=== PATIENT | male | born 1980 | race Caucasian/White ===

== ENCOUNTER 2018-05-31 10:53 | Inpatient (IN) | payer BC ==
[2018-05-31 12:21] VITALS: BMI 20.9
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
[2018-05-31] MEDS ORDERED: MAGNESIUM CITRATE 300 ML BOTTLE PO PRN (13:34)
[2018-05-31] MEDS ORDERED: ACETAMINOPHEN 325 MG TABLET (FP) PO PRN (13:34)
[2018-05-31] MEDS ORDERED: IBUPROFEN 400 MG TABLET (FP) PO PRN (13:34)
[2018-05-31] MEDS ORDERED: MENTHOL/PHENOL 1 EACH UD MM PRN (13:34)
[2018-05-31] MEDS ORDERED: MAGNESIUM HYDROX 2400MG/30ML ORAL SUSPENSION 30 ML CUP PO PRN (13:34)
[2018-05-31] MEDS ORDERED: MAG HYDROX/AL HYDROX/SIMETH 30 ML UNIT-DOSE CUP PO PRN (13:34)
[2018-05-31] MEDS ORDERED: chlordiazePOXIDE HCL 25 MG CAPSULE PO PRN (13:34)
[2018-05-31] MEDS ORDERED: P-EPHED 60MG/TRIPROLIDI 2.5MG TABLET PO PRN (13:34)
[2018-05-31] MEDS ORDERED: guaiFENesin/D-METHORPHAN HB 10 ML UNIT-DOSE CUPS PO PRN (13:34)
[2018-05-31] MEDS ORDERED: LOPERAMIDE HCL 2 MG CAPSULE PO PRN (13:34)
[2018-05-31] MEDS: NICOTINE 21 MG/24 HOURS TOPICAL PATCH TD SCH (15:20)
[2018-05-31] MEDS: chlordiazePOXIDE HCL 25 MG CAPSULE PO SCH ×2 (17:09→22:28)
[2018-05-31] MEDS: THIAMINE HCL 100 MG TABLET (FP) PO SCH (22:28)
[2018-05-31] MEDS: BUPRENORPHINE/NALOXONE 8 MG/2 MG FILM PACKET SL SCH (22:28)
[2018-05-31] MEDS: MELATONIN 5 MG TABLETS PO PRN (22:32)
[2018-06-01] MEDS: chlordiazePOXIDE HCL 25 MG CAPSULE PO SCH ×4 (05:17→22:02)
[2018-06-01 10:05] LABS: HEMATOCRIT 34.3 % (35.4-49); MCH 33.3 pg (25.7-33.7); MEAN CELL VOLUME 95.2 fl (80-96); MEAN PLT VOLUME 8.7 fl (7.5-11.1); PLATELET COUNT 309 K/MM3 (134-434); RDW 17.6 % (11.9-15.9); WHITE BLOOD COUNT 5.4 K/mm3 (4.0-10.0)
[2018-06-01] MEDS: PRENATAL VITAMINS W/ FOLIC ACID TABLET (FP) PO SCH (10:24)
[2018-06-01] MEDS: BUPRENORPHINE/NALOXONE 8 MG/2 MG FILM PACKET SL SCH ×2 (10:24→22:03)
[2018-06-01] MEDS: NICOTINE 21 MG/24 HOURS TOPICAL PATCH TD SCH (10:26)
[2018-06-01 11:21] LABS: ALBUMIN 2.8 g/dl (3.4-5.0); ALK PHOS 90 U/L (45-117); ANION GAP 7 MMOL/L (8-16); BILIRUBIN,TOTAL 0.7 mg/dL (0.2-1); BLOOD UREA NITROGEN 5 mg/dL (7-18); CALCIUM 8.1 mg/dL (8.5-10.1); CHLORIDE 101 mmol/L (98-107); CO2 30 mmol/L (21-32); CREATININE 0.5 mg/dL (0.55-1.3); GLUCOSE,RANDOM 88 mg/dL (74-106); POTASSIUM 3.4 mmol/L (3.5-5.1); SGOT/AST 37 U/L (15-37); SGPT/ALT 27 U/L (13-61); SODIUM 137 mmol/L (136-145)
[2018-06-01] MEDS: hydrOXYzine PAMOATE 50 MG CAPSULE (FP) PO PRN (13:19)
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
[2018-06-01] MEDS ORDERED: POTASSIUM CHLORIDE TABS 20 MEQ TABLET.ER (FP) PO ONE (15:15)
--- NOTE | 2018-06-01 15:25 | CONSULT ---
[facility] Psychiatric Consult - Data Date of interview: 06/01/17 Admission source: [facility] Identifying data: Patient is a 38 year old single male, without children, unemployed, domiciled, and suppported by public assistance. This is patient's first admission to detox at [facility]. Patient admitted to for alcohol and opiate dependence. Substance Abuse History: Smoking Cessation. Smoking history: Current every day smoker. Have you smoked in the past 12 months: Yes. Aproximately how many cigarettes per day: 10. Cigars Per Day: 0. Hx Chewing Tobacco Use: No. Initiated information on smoking cessation: Yes. 'Breaking Loose' booklet given : 05/31/18. - Substance & Tx. History. Hx Alcohol Use: Yes. Hx Substance Use : Yes. Substance Use Type: Alcohol, Heroin. Hx Substance Use Treatment: Yes ( [facility] 05/17). - Substances Abused. Alcohol. Route: Oral. Frequency: Daily. Amount used: 2 litres of vodka. Age of first use: 8. Date of Last Use : 05/30/18. Heroin. Route: Inhalation. Frequency: 1-2 times per week. Amount used: 5 bags. Age of first use: 20. Date of Last Use: 05/28/18 Medical History: Asthma Psychiatric History: Patient denies h/o psychiatric hospitalization and suicide attempt. Most recent outpatient psychiatric care was provided 3-4 years ago. Patient receives prescriptions of seroquel 200mg from his Primary care physican. Patient unable to provide a clear psychiatric history. He reports losing his medications last week and is requesting to resume seroquel while in detox. At present he reports stable mood. Physical/Sexual Abuse/Trauma History: denies. Mental Status Exam - Mental Status Exam Alert and Oriented to: Time, Place, Person Cognitive Function: Good Patient Appearance: Well Groomed Mood: Euthymic Affect: Appropriate Patient Behavior: Appropriate, Cooperative Speech Pattern: Clear, Appropriate Voice Loudness: Normal Thought Process: Intact, Goal Oriented Thought Disorder: Not Present Hallucinations: Denies Suicidal Ideation: Denies Homicidal Ideation: Denies Insight/Judgement: Poor Sleep: Poorly Appetite: Fair Muscle strength/Tone: Normal Gait/Station: Normal Psychiatric Findings - Problem List ([place] 1, 2,3) (1) Alcohol dependence with uncomplicated withdrawal Current Visit: Yes Status: Acute (2) Encounter for monitoring Suboxone maintenance therapy Current Visit: Yes Status: Chronic (3) Substance-induced sleep disorder Current Visit: Yes Status: Acute (4) Opioid dependence Current Visit: Yes Status: Chronic - Initial Treatment Plan Initial Treatment Plan: Psychoeducation provided. Detoxification in progress. Will order Seroquel 50mg qhs. Benefits and side effects discussed. Verbal consent given.
[2018-06-01] MEDS: POTASSIUM CHLORIDE TABS 20 MEQ TABLET.ER (FP) PO SCH (17:19)
[2018-06-01] MEDS: THIAMINE HCL 100 MG TABLET (FP) PO SCH (22:02)
[2018-06-01] MEDS: QUEtiapine FUMARATE 50 MG TABLET PO SCH (22:02)
[2018-06-01] MEDS: BACITRACIN 0.9 GM PACKET TP SCH (22:03)
[2018-06-02] MEDS: chlordiazePOXIDE HCL 25 MG CAPSULE PO SCH ×2 (06:00→11:15)
[2018-06-02] MEDS: PRENATAL VITAMINS W/ FOLIC ACID TABLET (FP) PO SCH (11:14)
[2018-06-02] MEDS: BUPRENORPHINE/NALOXONE 8 MG/2 MG FILM PACKET SL SCH ×2 (11:14→22:35)
[2018-06-02] MEDS: LIDOCAINE 5% TOPICAL PATCH TP SCH (11:15)
[2018-06-02] MEDS: BACITRACIN 0.9 GM PACKET TP SCH ×2 (11:16→22:35)
[2018-06-02] MEDS: NICOTINE 21 MG/24 HOURS TOPICAL PATCH TD SCH (11:16)
[2018-06-02] MEDS: POTASSIUM CHLORIDE TABS 20 MEQ TABLET.ER (FP) PO SCH ×2 (11:16→17:23)
--- NOTE | 2018-06-02 16:29 | PN ---
S CIWA - CIWA Score Nausea/Vomitin-No Nausea/No Vomiting Muscle Tremors: 3 Anxiety: 2 Agitation: 0-Normal Activity Paroxysmal Sweats: 3 Orientation: 0-Oriented Tacttile Disturbances: 2-Mild Itch/Numbness/Burn Auditory Disturbances: 0-None Visual Disturbances: 2-Mild Sensitivity Headache: 0-None Present CIWA-Ar Total Score: 12 BHS Progress Note (SOAP) Subjective: Tremors, Sweating, Interrupted Sleep, Constipation. Objective: PATIENT A & O X 3, OBSERVED AMBULATING ON UNIT. IN NO ACUTE DISTRESS. WOUND ON RIGHT SIDE OF HEAD ABOVE RIGHT EAR HEALING WELL. NO DISCHARGE OR SIGNS OF INFECTION NOTED AT SITE. 06/02/18 16:27 Vital Signs Temperature 97.9 F 06/02/18 14:12 Pulse Rate 69 06/02/18 14:12 Respiratory Rate 16 06/02/18 14:12 Blood Pressure 116/75 06/02/18 14:12 O2 Sat by Pulse Oximetry (%) Laboratory Tests 06/01/18 06/01/18 06/01/18 08:00 08:00 08:00 WBC 5.4 RBC 3.60 L Hgb 12.0 Hct 34.3 L MCV 95.2 MCH 33.3 MCHC 35.0 RDW 17.6 H Plt Count 309 MPV 8.7 Sodium 137 Potassium 3.4 L Chloride 101 Carbon Dioxide 30 Anion Gap 7 L BUN 5 L Creatinine 0.5 L Creat Clearance w eGFR > 60 Random Glucose 88 Calcium 8.1 L Total Bilirubin 0.7 AST 37 ALT 27 Alkaline Phosphatase 90 Total Protein 6.0 L Albumin 2.8 L RPR Titer Nonreactive LABS NOTED. 06/02/18 16:29 Assessment: 06/02/18 16:28 WITHDRAWAL SYMPTOMS. HYPOKALEMIA. Plan: CONTINUE DETOX. CONTINUE K-DUR. INCREASE DAILY PO FLUID INTAKE. PRN MOM FOR CONSTIPATION.
[2018-06-02] MEDS: chlordiazePOXIDE 5 MG CAPSULE PO SCH ×2 (17:23→22:35)
[2018-06-02] MEDS: hydrOXYzine PAMOATE 50 MG CAPSULE (FP) PO PRN (20:22)
[2018-06-02] MEDS: QUEtiapine FUMARATE 50 MG TABLET PO SCH (22:35)
[2018-06-02] MEDS: THIAMINE HCL 100 MG TABLET (FP) PO SCH (22:35)
[2018-06-02] MEDS: LIDOCAINE PATCH REMOVAL MC SCH (22:35)
[2018-06-02] MEDS: MELATONIN 5 MG TABLETS PO PRN (22:36)
[2018-06-03] MEDS: chlordiazePOXIDE 5 MG CAPSULE PO SCH ×2 (06:14→10:09)
[2018-06-03] MEDS: PRENATAL VITAMINS W/ FOLIC ACID TABLET (FP) PO SCH (10:08)
[2018-06-03] MEDS: POTASSIUM CHLORIDE TABS 20 MEQ TABLET.ER (FP) PO SCH ×3 (10:08→17:44)
[2018-06-03] MEDS: BACITRACIN 0.9 GM PACKET TP SCH ×2 (10:09→22:17)
[2018-06-03] MEDS: NICOTINE 21 MG/24 HOURS TOPICAL PATCH TD SCH (10:09)
[2018-06-03] MEDS: BUPRENORPHINE/NALOXONE 8 MG/2 MG FILM PACKET SL SCH ×2 (10:09→22:17)
[2018-06-03] MEDS: LIDOCAINE 5% TOPICAL PATCH TP SCH (10:10)
[2018-06-03] MEDS: chlordiazePOXIDE HCL 10 MG CAPSULE PO SCH ×2 (17:42→22:19)
--- NOTE | 2018-06-03 18:03 | PN ---
BHS Progress Note (SOAP) Subjective: Sweating, Hot / Cold Sensations, Constipation, Anxious, Body Aches, Ftigue, Tremors, Stomach Cramping, Interrupted Sleep. Objective: PATIENT A & O X 3. IN NO ACUTE DISTRESS. 06/03/18 18:02 Vital Signs Temperature 98.2 F 06/03/18 15:45 Pulse Rate 58 L 06/03/18 15:45 Respiratory Rate 16 06/03/18 15:45 Blood Pressure 96/57 L 06/03/18 15:45 O2 Sat by Pulse Oximetry (%) Laboratory Tests 06/01/18 06/01/18 06/01/18 08:00 08:00 08:00 WBC 5.4 RBC 3.60 L Hgb 12.0 Hct 34.3 L MCV 95.2 MCH 33.3 MCHC 35.0 RDW 17.6 H Plt Count 309 MPV 8.7 Sodium 137 Potassium 3.4 L Chloride 101 Carbon Dioxide 30 Anion Gap 7 L BUN 5 L Creatinine 0.5 L Creat Clearance w eGFR > 60 Random Glucose 88 Calcium 8.1 L Total Bilirubin 0.7 AST 37 ALT 27 Alkaline Phosphatase 90 Total Protein 6.0 L Albumin 2.8 L RPR Titer Nonreactive LABS NOTED. Assessment: 06/03/18 18:02 WITHDRAWAL SYMPTOMS. HYPOKALEMIA. 06/03/18 18:03 Plan: CONTINUE DETOX. INCREASE DAILY PO FLUID INTAKE. ENCOURAGE AMBULATION.
[2018-06-03] MEDS: THIAMINE HCL 100 MG TABLET (FP) PO SCH (22:17)
[2018-06-03] MEDS: MELATONIN 5 MG TABLETS PO PRN (22:17)
[2018-06-03] MEDS: QUEtiapine FUMARATE 50 MG TABLET PO SCH (22:17)
[2018-06-03] MEDS: LIDOCAINE PATCH REMOVAL MC SCH (22:18)
[2018-06-04] MEDS: hydrOXYzine PAMOATE 50 MG CAPSULE (FP) PO PRN ×3 (00:51→22:26)
[2018-06-04] MEDS: chlordiazePOXIDE HCL 10 MG CAPSULE PO SCH ×2 (06:22→10:42)
--- NOTE | 2018-06-04 10:37 | PN ---
S Progress Note (SOAP) Subjective: alert,irritable,anxious,interrupted sleep Objective: 06/04/18 10:36 Vital Signs Temperature 98.8 F 06/04/18 06:55 Pulse Rate 55 L 06/04/18 06:55 Respiratory Rate 18 06/04/18 06:55 Blood Pressure 104/59 L 06/04/18 06:55 O2 Sat by Pulse Oximetry (%) Assessment: 06/04/18 10:36 withdrawal symptom Plan: continue detox,discharge in am
[2018-06-04] MEDS: PRENATAL VITAMINS W/ FOLIC ACID TABLET (FP) PO SCH (10:41)
[2018-06-04] MEDS: NICOTINE 21 MG/24 HOURS TOPICAL PATCH TD SCH (10:42)
[2018-06-04] MEDS: LIDOCAINE 5% TOPICAL PATCH TP SCH (10:42)
[2018-06-04] MEDS: BUPRENORPHINE/NALOXONE 8 MG/2 MG FILM PACKET SL SCH ×2 (10:42→22:26)
[2018-06-04] MEDS: BACITRACIN 0.9 GM PACKET TP SCH ×2 (10:43→22:26)
[2018-06-04] MEDS: POTASSIUM CHLORIDE TABS 20 MEQ TABLET.ER (FP) PO SCH ×2 (10:45→18:00)
[2018-06-04] MEDS: QUEtiapine FUMARATE 50 MG TABLET PO SCH (22:26)
[2018-06-04] MEDS: LIDOCAINE PATCH REMOVAL MC SCH (22:26)
[2018-06-04] MEDS: MELATONIN 5 MG TABLETS PO PRN (22:26)
[2018-06-04] MEDS: THIAMINE HCL 100 MG TABLET (FP) PO SCH (22:36)
[2018-06-05 09:55] VITALS: BP 93/58; PULSE 57; TEMP 97.1
[2018-06-05] MEDS: BUPRENORPHINE/NALOXONE 8 MG/2 MG FILM PACKET SL SCH (09:58)
[2018-06-05] MEDS: POTASSIUM CHLORIDE TABS 20 MEQ TABLET.ER (FP) PO SCH (09:59)
[2018-06-05] MEDS: PRENATAL VITAMINS W/ FOLIC ACID TABLET (FP) PO SCH (09:59)
[2018-06-05] MEDS: BACITRACIN 0.9 GM PACKET TP SCH (09:59)
[2018-06-05] MEDS: NICOTINE 21 MG/24 HOURS TOPICAL PATCH TD SCH (09:59)
[2018-06-05] MEDS: LIDOCAINE 5% TOPICAL PATCH TP SCH (09:59)
--- NOTE | 2018-06-05 10:13 | DS ---
[facility] Detox Discharge Summary Admission Date: 05/31/18 Discharge Date: 06/05/18 - History Present History: Alcohol Dependence Additional Comments: 38 years old male admitted on 05/31/18 for alcohol withdrawal stabilization completed detox regimen tolerated well alert no acute distress aftercare [facility] patient reported that he is in suboxone program taking 8-2 mb twice daily patient agrees to return to suboxone program for medical mental and addiction issues - Physical Exam Results Vital Signs: Vital Signs Temperature 97.1 F L 06/05/18 09:54 Pulse Rate 57 L 06/05/18 09:54 Respiratory Rate 18 06/05/18 09:54 Blood Pressure 93/58 L 06/05/18 09:54 O2 Sat by Pulse Oximetry (%) Pertinent Admission Physical Exam Findings: alcohol withdrawal sx Vital Signs Temperature 97.1 F L 06/05/18 09:54 Pulse Rate 57 L 06/05/18 09:54 Respiratory Rate 18 06/05/18 09:54 Blood Pressure 93/58 L 06/05/18 09:54 O2 Sat by Pulse Oximetry (%) Laboratory Last Values WBC 5.4 K/mm3 (4.0-10.0) 06/01/18 08:00 RBC 3.60 M/mm3 (4.00-5.60) L 06/01/18 08:00 Hgb 12.0 GM/dL (11.7-16.9) 06/01/18 08:00 Hct 34.3 % (35.4-49) L 06/01/18 08:00 MCV 95.2 fl (80-96) 06/01/18 08:00 MCH 33.3 pg (25.7-33.7) 06/01/18 08:00 MCHC 35.0 g/dl (32.0-35.9) 06/01/18 08:00 RDW 17.6 % (11.9-15.9) H 06/01/18 08:00 Plt Count 309 K/MM3 (134-434) 06/01/18 08:00 MPV 8.7 fl (7.5-11.1) 06/01/18 08:00 Sodium 137 mmol/L (136-145) 06/01/18 08:00 Potassium 3.4 mmol/L (3.5-5.1) L 06/01/18 08:00 Chloride 101 mmol/L (98-107) 06/01/18 08:00 Carbon Dioxide 30 mmol/L (21-32) 06/01/18 08:00 Anion Gap 7 MMOL/L (8-16) L 06/01/18 08:00 BUN 5 mg/dL (7-18) L 06/01/18 08:00 Creatinine 0.5 mg/dL (0.55-1.3) L 06/01/18 08:00 Creat Clearance w eGFR > 60 (>60) 06/01/18 08:00 Random Glucose 88 mg/dL (74-106) 06/01/18 08:00 Calcium 8.1 mg/dL (8.5-10.1) L 06/01/18 08:00 Total Bilirubin 0.7 mg/dL (0.2-1) 06/01/18 08:00 AST 37 U/L (15-37) 06/01/18 08:00 ALT 27 U/L (13-61) 06/01/18 08:00 Alkaline Phosphatase 90 U/L (45-117) 06/01/18 08:00 Total Protein 6.0 g/dl (6.4-8.2) L 06/01/18 08:00 Albumin 2.8 g/dl (3.4-5.0) L 06/01/18 08:00 RPR Titer Nonreactive (NONREACTIVE) 06/01/18 08:00 lab noted - Treatment Hospital Course: Detox Protocol Followed, Detoxed Safely, Responded well, Discharged Condition Good, Rehab Referral Accepted Patient has Accepted a Rehab Referral to: [facility] - Medication Discharge Medications: Ambulatory Orders Buprenorphine/Naloxone [Suboxone 8Mg/2Mg Sl Film -] 1 each SL BID 05/31/18 Chlordiazepoxide HCl 25 mg PO BID 05/31/18 Mirtazapine [Remeron -] 45 mg PO DAILY 05/31/18 Quetiapine Fumarate [Seroquel -] 300 mg PO HS 05/31/18 clonazePAM [KlonoPIN -] 2 mg PO BID 05/31/18 Potassium Chloride [K-Dur -] 20 meq PO BID@1000,1800 #7 tablet.er 06/05/18 - Diagnosis (1) Alcohol dependence with uncomplicated withdrawal Status: Acute (2) Substance induced mood disorder Status: Suspected (3) Weight loss Status: Acute (4) Encounter for monitoring Suboxone maintenance therapy Status: Chronic - AMA Did Patient Leave Against Medical Advice: No
== END 2018-06-05 12:06 | disposition home or self-care (01) | DRG 773 ==
LOC: YASAS 10:53 → Y6N 13:46
PROC: HZ2ZZZZ Detoxification Services for Substance Abuse Treatment (ICD-10-PCS; principal; 2018-05-31)
DX: F10.230 Alcohol dependence with withdrawal, uncomplicated (principal); F11.10 Opioid abuse, uncomplicated; F19.282 Other psychoactive substance dependence with psychoactive substance-induced sleep disorder; F19.24 Other psychoactive substance dependence with psychoactive substance-induced mood disorder; F31.9 Bipolar disorder, unspecified; D64.9 Anemia, unspecified; J45.909 Unspecified asthma, uncomplicated; R55 Syncope and collapse; R56.9 Unspecified convulsions; E87.6 Hypokalemia; R63.4 Abnormal weight loss; Z68.21 Body mass index [BMI] 21.0-21.9, adult; Z51.81 Encounter for therapeutic drug level monitoring; Z48.01 Encounter for change or removal of surgical wound dressing
CPT/HCPCS: 36415; 80053; 85027; 86593

== ENCOUNTER 2019-12-12 09:04 | Inpatient (IN) | payer BC ==
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
[2019-12-12 16:52] VITALS: BMI 22.3
[2019-12-12] MEDS ORDERED: MENTHOL/PHENOL 1 EACH UD MM PRN (16:57)
[2019-12-12] MEDS ORDERED: MAGNESIUM HYDROX 2400MG/30ML ORAL SUSPENSION 30 ML CUP PO PRN (16:57)
[2019-12-12] MEDS ORDERED: MAG HYDROX/AL HYDROX/SIMETH 30 ML UNIT-DOSE CUP PO PRN (16:57)
[2019-12-12] MEDS ORDERED: BISMUTH SUBSALICYLATE 524 MG/30 ML UD PO PRN (16:57)
[2019-12-12] MEDS ORDERED: ACETAMINOPHEN 325 MG TABLET (FP) PO PRN ×2 (16:57)
[2019-12-12] MEDS ORDERED: MAGNESIUM CITRATE 300 ML BOTTLE PO PRN (16:57)
[2019-12-12] MEDS ORDERED: ONDANSETRON *ODT* 4 MG TABLET SL PRN (16:57)
[2019-12-12] MEDS ORDERED: hydrOXYzine PAMOATE 25 MG CAPSULE (FP) PO PRN (16:57)
[2019-12-12] MEDS ORDERED: LORazepam 1 MG TABLET PO PRN (16:59)
[2019-12-12] MEDS ORDERED: TRIMETHOBENZAMIDE HCL 200MG/2ML INJ IM ONE (16:59)
[2019-12-12] MEDS: LORazepam 2 MG TABLET PO SCH ×2 (18:11→22:00)
[2019-12-12] MEDS: IBUPROFEN 400 MG TABLET (FP) PO PRN (18:21)
[2019-12-12] MEDS: NICOTINE 14 MG/24 HOURS TOPICAL PATCH TD SCH (18:28)
[2019-12-12] MEDS: MELATONIN 5 MG TABLETS PO SCH (22:00)
[2019-12-12] MEDS: THIAMINE HCL 100 MG TABLET (FP) PO SCH (22:00)
[2019-12-12] MEDS: METHOCARBAMOL 500 MG TABLET PO PRN (22:02)
[2019-12-13] MEDS: BACITRACIN 15 GM TUBE TOPICAL OINTMENT TP SCH ×3 (00:03→22:05)
[2019-12-13] MEDS: METHYL SALICYLATE/MENTHOL OINT 30 GM TUBE TP SCH ×3 (00:04→22:05)
[2019-12-13] MEDS: LORazepam 2 MG TABLET PO SCH ×4 (05:16→22:04)
[2019-12-13] MEDS ORDERED: GABAPENTIN 100 MG CAPSULE PO ONE (09:34)
--- NOTE | 2019-12-13 09:39 | PN ---
S CIWA - CIWA Score Nausea/Vomitin-Mild Nausea/No Vomiting Muscle Tremors: 5 Anxiety: 4-Mod. Anxious/Guarded Agitation: 2 Paroxysmal Sweats: 2 Orientation: 2-Disoriented Date<2 days (date of week) Tacttile Disturbances: 1-Very Mild Itch/Numbness Auditory Disturbances: 0-None Visual Disturbances: 2-Mild Sensitivity Headache: 3-Moderate CIWA-Ar Total Score: 22 BHS Progress Note (SOAP) Subjective: 39 years old male admitted on 12/12/19 for alcohol withdrawal sx management treating with ativan detox regiment trouble intake breakfast due to muscle sore and tremor ensure 120 mg po tid with meals history of mixing benzo with alcohol neurontin initiated brought from [facility] by wheelchair due to tremor and muscle tremor reports feeling better this morning will be seen by a psychiatrist that mr merino requests seroquel "makes me eat" Objective: 12/13/19 09:41 Vital Signs - 24 hr 12/12/19 12/12/19 12/12/19 16:51 17:23 18:11 Temperature 98.6 F 97.7 F 98.2 F Pulse Rate 109 H 77 101 H Respiratory 18 18 18 Rate Blood Pressure 131/87 117/71 124/85 O2 Sat by Pulse 95 Oximetry (%) 12/12/19 12/12/19 12/13/19 18:26 20:35 06:09 Temperature 97.5 F L 96.9 F L Pulse Rate 118 H 89 Respiratory 18 16 Rate Blood Pressure 114/77 113/81 O2 Sat by Pulse 98 96 95 Oximetry (%) 12/13/19 08:51 Temperature 97.1 F L Pulse Rate 75 Respiratory 18 Rate Blood Pressure 129/80 O2 Sat by Pulse Oximetry (%) 12/13/19 09:41 lab pending Assessment: 12/13/19 09:41 alcohol withdrawal 12/13/19 09:42 sever alcohol withdrawal by history Plan: ativan regiment neutontin 100mg po tid initiated
--- NOTE | 2019-12-13 09:41 | EKG ---
Test Reason : Blood Pressure : / mmHG Vent. Rate : 087 BPM Atrial Rate : 087 BPM P-R Int : 134 ms QRS Dur : 086 ms QT Int : 368 ms P-R-T Axes : 082 083 082 degrees QTc Int : 442 ms NORMAL SINUS RHYTHM BIATRIAL ENLARGEMENT ABNORMAL ECG NO PREVIOUS ECGS AVAILABLE Confirmed by MD EVY, ROBERTA ([id number]) on 12/13/2019 9:40:23 AM Referred By: Confirmed By:ROBERTA RATLIFF MD
[2019-12-13] MEDS: PRENATAL VITAMINS W/ FOLIC ACID TABLET (FP) PO SCH (10:21)
[2019-12-13] MEDS: hydrOXYzine PAMOATE 25 MG CAPSULE (FP) PO SCH ×4 (10:21→22:04)
[2019-12-13] MEDS: NICOTINE 14 MG/24 HOURS TOPICAL PATCH TD SCH (10:22)
[2019-12-13 11:16] LABS: HEMATOCRIT 46.6 % (35.4-49); HEMOGLOBIN 15.4 GM/dL (11.7-16.9); MCH 32.5 pg (25.7-33.7); MCHC 32.9 g/dl (32.0-35.9); MEAN CELL VOLUME 98.5 fl (80-96); PLATELET COUNT 182 K/MM3 (134-434); RBC 4.73 M/mm3 (4.00-5.60); WHITE BLOOD COUNT 5.3 K/mm3 (4.0-10.0)
[2019-12-13 11:48] LABS: ALBUMIN 4.2 g/dl (3.4-5.0); BILIRUBIN,TOTAL 1.1 mg/dL (0.2-1); BLOOD UREA NITROGEN 5.6 mg/dL (7-18); CALCIUM 9.3 mg/dL (8.5-10.1); CREATININE 0.8 mg/dL (0.55-1.3); POTASSIUM 3.4 mmol/L (3.5-5.1); TOT PROT 7.7 g/dl (6.4-8.2)
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
[2019-12-13] MEDS: GABAPENTIN 100 MG CAPSULE PO SCH ×2 (14:03→22:04)
[2019-12-13] MEDS ORDERED: POTASSIUM CHLORIDE ORAL LIQUID 20 MEQ/15 ML PO ONE (15:30)
[2019-12-13] MEDS: QUEtiapine FUMARATE 100 MG TABLET (FP) PO SCH (22:04)
[2019-12-13] MEDS: MELATONIN 5 MG TABLETS PO SCH (22:04)
[2019-12-13] MEDS: THIAMINE HCL 100 MG TABLET (FP) PO SCH (22:04)
[2019-12-14] MEDS: hydrOXYzine PAMOATE 25 MG CAPSULE (FP) PO SCH ×6 (04:05→22:04)
[2019-12-14] MEDS: GABAPENTIN 100 MG CAPSULE PO SCH ×3 (05:26→22:04)
[2019-12-14] MEDS: LORazepam 1 MG TABLET PO SCH ×4 (05:26→22:04)
[2019-12-14] MEDS: NICOTINE 14 MG/24 HOURS TOPICAL PATCH TD SCH (10:29)
[2019-12-14] MEDS: METHYL SALICYLATE/MENTHOL OINT 30 GM TUBE TP SCH ×2 (10:31→22:12)
[2019-12-14] MEDS: BACITRACIN 15 GM TUBE TOPICAL OINTMENT TP SCH ×2 (10:31→22:12)
[2019-12-14] MEDS: PRENATAL VITAMINS W/ FOLIC ACID TABLET (FP) PO SCH (10:31)
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
[2019-12-14] MEDS: IBUPROFEN 400 MG TABLET (FP) PO PRN (17:38)
[2019-12-14] MEDS: METHOCARBAMOL 500 MG TABLET PO PRN (19:17)
[2019-12-14] MEDS: QUEtiapine FUMARATE 100 MG TABLET (FP) PO SCH (22:04)
[2019-12-14] MEDS: THIAMINE HCL 100 MG TABLET (FP) PO SCH (22:04)
[2019-12-14] MEDS: MELATONIN 5 MG TABLETS PO SCH (22:12)
[2019-12-15] MEDS ORDERED: LORazepam 0.5 MG TABLET PO PRN
[2019-12-15] MEDS: hydrOXYzine PAMOATE 25 MG CAPSULE (FP) PO SCH ×2 (02:23→05:28)
[2019-12-15] MEDS: GABAPENTIN 100 MG CAPSULE PO SCH ×3 (05:27→22:16)
[2019-12-15] MEDS: LORazepam 0.5 MG TABLET PO SCH ×4 (05:27→22:16)
[2019-12-15] MEDS: hydrOXYzine PAMOATE 25 MG CAPSULE (FP) PO PRN ×3 (10:16→22:16)
[2019-12-15] MEDS: NICOTINE 14 MG/24 HOURS TOPICAL PATCH TD SCH (10:16)
[2019-12-15] MEDS: PRENATAL VITAMINS W/ FOLIC ACID TABLET (FP) PO SCH (10:16)
[2019-12-15] MEDS: METHYL SALICYLATE/MENTHOL OINT 30 GM TUBE TP SCH ×2 (10:18→22:16)
[2019-12-15] MEDS: BACITRACIN 15 GM TUBE TOPICAL OINTMENT TP SCH ×2 (10:18→22:16)
--- NOTE | 2019-12-15 10:46 | PN ---
S CIWA - CIWA Score Nausea/Vomitin-Mild Nausea/No Vomiting Muscle Tremors: 4-Moderate,w/Arms Extend Anxiety: 1-Mildly Anxious Agitation: 0-Normal Activity Paroxysmal Sweats: 1-Minimal Palms Moist Orientation: 1-Uncertain about Date Tacttile Disturbances: 0-None Auditory Disturbances: 0-None Visual Disturbances: 0-None Headache: 0-None Present CIWA-Ar Total Score: 8 BHS Progress Note (SOAP) Subjective: Mr Clark currently admitted for alcohol detox. On Ativan protocol. Objective: 12/15/19 10:46 Laboratory 12/12/19 12/13/19 12/13/19 17:50 07:30 07:30 WBC 5.3 K/mm3 K/mm3 (4.0-10.0) RBC 4.73 M/mm3 M/mm3 (4.00-5.60) Hgb 15.4 GM/dL GM/dL (11.7-16.9) Hct 46.6 % D % (35.4-49) MCV 98.5 fl H fl (80-96) MCH 32.5 pg pg (25.7-33.7) MCHC 32.9 g/dl g/dl (32.0-35.9) RDW 15.0 % D % (11.9-15.9) Plt Count 182 K/MM3 D K/MM3 (134-434) MPV 9.0 fl fl (7.5-11.1) Sodium Potassium Chloride Carbon Dioxide Anion Gap BUN Creatinine Est GFR (CKD-EPI)AfAm Est GFR (CKD-EPI)NonAf Random Glucose Calcium Total Bilirubin AST ALT Alkaline Phosphatase Total Protein Albumin Syphilis Serology Non-reactive (NONREACTIVE) COVID-19 (MARTIN) Not detected (Not Detected) 12/13/19 07:30 WBC RBC Hgb Hct MCV MCH MCHC RDW Plt Count MPV Sodium 140 mmol/L mmol/L (136-145) Potassium 3.4 mmol/L L mmol/L (3.5-5.1) Chloride 98 mmol/L mmol/L (98-107) Carbon Dioxide 34 mmol/L H mmol/L (21-32) Anion Gap 8 MMOL/L MMOL/L (8-16) BUN 5.6 mg/dL L mg/dL (7-18) Creatinine 0.8 mg/dL mg/dL (0.55-1.3) Est GFR (CKD-EPI)AfAm 130.42 Est GFR (CKD-EPI)NonAf 112.53 Random Glucose 106 mg/dL mg/dL (74-106) Calcium 9.3 mg/dL mg/dL (8.5-10.1) Total Bilirubin 1.1 mg/dL H mg/dL (0.2-1) AST 65 U/L H U/L (15-37) ALT 30 U/L U/L (13-61) Alkaline Phosphatase 78 U/L U/L (45-117) Total Protein 7.7 g/dl g/dl (6.4-8.2) Albumin 4.2 g/dl g/dl (3.4-5.0) Syphilis Serology COVID-19 (MARTIN) Assessment: 12/15/19 10:48 Alcohol withdrawal Plan: c/w Ativan protocol
--- NOTE | 2019-12-15 17:13 | PN ---
Psychiatric Progress Note Vital Signs: Vital Signs Period Temp Pulse Resp BP Sys/Contreras Pulse Ox Last 24 Hr 96.6 F-97.7 F 54-86 18-18 107-117/73-80 98-99 Date of Session: 12/15/19 Chief Complaint:: " I want my seroquel on a twice a day basis." HPI: Day 4 of detoxification treatment. Uneventful hospitalization. Psychiatric follow-up is requested to address patient's request for seroquel twice a day. No acute issues. ROS: Unremarkable. Current Medications: Active Medications Generic Name Dose Route Start Last Admin Trade Name Freq PRN Reason Stop Dose Admin Acetaminophen 650 mg 12/12/19 16:57 Tylenol - PO Q6H PRN PAIN LEVEL 4 - 6 Acetaminophen 650 mg 12/12/19 16:57 Tylenol - PO Q6H PRN FEVER Al Hydroxide/Mg Hydroxide 30 ml 12/12/19 16:57 Mylanta Oral Suspension - PO Q6H PRN DYSPEPSIA Bacitracin 1 applic 12/12/19 22:00 12/15/19 10:18 Bacitracin - TP Not Given BID CHRISTIAN Bismuth Subsalicylate 524 mg 12/12/19 16:57 Pepto-Bismol - PO Q1H PRN DIARRHEA Eucalyptus/Menthol/Phenol/Sorbitol 1 each 12/12/19 16:57 Cepastat Lozenge - MM 12/18/19 16:57 Q4H PRN SORE THROAT Gabapentin 100 mg 12/13/19 14:00 12/15/19 13:11 Neurontin - PO 100 mg TID CHRISTIAN Administration Hydroxyzine Pamoate 25 mg 12/15/19 08:52 12/15/19 10:16 Vistaril - PO 12/18/19 16:58 25 mg Q4H PRN Administration ANXIETY Ibuprofen 400 mg 12/12/19 16:57 12/14/19 17:38 Motrin - PO 400 mg Q6H PRN Administration PAIN LEVEL 1 - 3 Lorazepam 0.5 mg 12/15/19 05:00 12/15/19 10:16 Ativan - PO 12/15/19 23:01 0.5 mg Q6H CHRISTIAN Administration Lorazepam 0.5 mg 12/15/19 00:00 Ativan - PO 12/16/19 00:00 Q4H PRN Symptoms of Withdrawal Lorazepam 0.5 mg 12/16/19 05:00 Ativan - PO 12/16/19 05:01 ONCE ONE Magnesium Citrate 300 ml 12/12/19 16:57 Citroma - PO Q48H PRN CONSTIPATION Magnesium Hydroxide 30 ml 12/12/19 16:57 Milk Of Magnesia - PO PRN PRN CONSTIPATION Melatonin 5 mg 12/12/19 22:00 12/14/19 22:12 Melatonin PO 5 mg HS CHRISTIAN Administration Methocarbamol 500 mg 12/12/19 16:57 12/14/19 19:17 Robaxin - PO 12/18/19 16:57 500 mg Q6H PRN Administration MUSCLE SPASMS Methyl Salicylate 1 applic 12/12/19 22:00 12/15/19 10:18 Adriano-Underwood - TP Not Given BID CHRISTIAN Nicotine 14 mg 12/12/19 17:00 12/15/19 10:16 Nicoderm Patch - TD 14 mg DAILY CHRISTIAN Administration Ondansetron HCl 4 mg 12/12/19 16:57 Zofran Odt - SL ONCE PRN NAUSEA Multivit/Folic Acid/Iron 1 tab 12/13/19 10:00 12/15/19 10:16 Vitamins (Sjr) - PO 1 tab DAILY CHRISTIAN Administration Quetiapine Fumarate 100 mg 12/13/19 22:00 12/14/19 22:04 Seroquel - PO 100 mg HS CHRISTIAN Administration Thiamine HCl 100 mg 12/12/19 22:00 12/14/19 22:04 Vitamin B1 - PO 100 mg HS CHRISTIAN Administration Medication(s) Change(s): Additional dose of seroquel 50 mg po daily is ordered at patient's request. Side effects/benefits discussed in this session. Mr Sammi hua agrees with this plan of care. Current Side Effect: No Lab tests ordered: No Lab tests reviewed: Yes Provider note:: Chart reviewed. Met with the patient. Revisited in this session : risk of metabolic syndrome. Patient declares that he is aware of this risk. He also remarks that seroquel " helps me relax and improves my appetite." Mr Clark indicates that he watches his weight with care. Patient is adherent to his medications. Mental status remains stable. Refer to MSE report for details. Benign hospital course. Baseline. Total face to face time:: 25 Mental Status Exam - Mental Status Exam Alert and Oriented to: Time, Place, Person Cognitive Function: Good Patient Appearance: Disheveled Mood: Withdrawn, Anxious (mildly anxious) Affect: Appropriate, Normal Range Patient Behavior: Fatigued, Appropriate, Cooperative Speech Pattern: Clear, Appropriate Voice Loudness: Normal Thought Process: Intact, Goal Oriented Thought Disorder: Not Present Hallucinations: Denies Suicidal Ideation: Denies Homicidal Ideation: Denies Insight/Judgement: Fair Sleep: Well Appetite: Fair Gait/Station: Normal Psychiatric Treatment Plan - Problem List (1) Alcohol dependence with uncomplicated withdrawal Current Visit: Yes Comment: . (2) Cannabis abuse Current Visit: Yes Comment: . (3) Nicotine dependence Current Visit: Yes Comment: . (4) Substance induced mood disorder Current Visit: Yes Comment: . (5) History of bipolar disorder Current Visit: Yes Comment: . (6) Insomnia Current Visit: Yes Comment: .
[2019-12-15] MEDS: MELATONIN 5 MG TABLETS PO SCH (22:16)
[2019-12-15] MEDS: THIAMINE HCL 100 MG TABLET (FP) PO SCH (22:16)
[2019-12-15] MEDS: QUEtiapine FUMARATE 100 MG TABLET (FP) PO SCH (22:16)
[2019-12-16] MEDS ORDERED: LORazepam 0.5 MG TABLET PO ONE ×2 (05:00→18:13)
[2019-12-16] MEDS: GABAPENTIN 100 MG CAPSULE PO SCH ×3 (05:39→21:25)
[2019-12-16] MEDS: METHYL SALICYLATE/MENTHOL OINT 30 GM TUBE TP SCH ×2 (09:30→21:29)
[2019-12-16] MEDS: BACITRACIN 15 GM TUBE TOPICAL OINTMENT TP SCH ×2 (09:30→21:28)
[2019-12-16] MEDS: PRENATAL VITAMINS W/ FOLIC ACID TABLET (FP) PO SCH (09:30)
[2019-12-16] MEDS: hydrOXYzine PAMOATE 25 MG CAPSULE (FP) PO PRN ×3 (09:35→16:48)
[2019-12-16] MEDS: QUEtiapine FUMARATE 50 MG TABLET PO SCH (09:36)
[2019-12-16] MEDS: NICOTINE 14 MG/24 HOURS TOPICAL PATCH TD SCH (09:36)
--- NOTE | 2019-12-16 12:23 | PN ---
[facility] CIWA - CIWA Score Nausea/Vomitin-No Nausea/No Vomiting Muscle Tremors: None Anxiety: 2 Agitation: 0-Normal Activity Paroxysmal Sweats: 2 Orientation: 0-Oriented Tacttile Disturbances: 0-None Auditory Disturbances: 0-None Visual Disturbances: 0-None Headache: 1-Very Mild CIWA-Ar Total Score: 5 S Progress Note (SOAP) Subjective: c/o mild withdrawal symptoms. Objective: 12/16/19 12:19 Vital Signs 12/16/19 12/16/19 05:35 08:36 Temperature 97.5 F L 97.5 F L Pulse Rate 71 61 Respiratory 18 16 Rate Blood Pressure 97/65 128/84 O2 Sat by Pulse 99 Oximetry (%) Laboratory Last Values WBC 5.3 K/mm3 (4.0-10.0) 12/13/19 07:30 RBC 4.73 M/mm3 (4.00-5.60) 12/13/19 07:30 Hgb 15.4 GM/dL (11.7-16.9) 12/13/19 07:30 Hct 46.6 % (35.4-49) D 12/13/19 07:30 MCV 98.5 fl (80-96) H 12/13/19 07:30 MCH 32.5 pg (25.7-33.7) 12/13/19 07:30 MCHC 32.9 g/dl (32.0-35.9) 12/13/19 07:30 RDW 15.0 % (11.9-15.9) D 12/13/19 07:30 Plt Count 182 K/MM3 (134-434) D 12/13/19 07:30 MPV 9.0 fl (7.5-11.1) 12/13/19 07:30 Sodium 140 mmol/L (136-145) 12/13/19 07:30 Potassium 3.4 mmol/L (3.5-5.1) L 12/13/19 07:30 Chloride 98 mmol/L (98-107) 12/13/19 07:30 Carbon Dioxide 34 mmol/L (21-32) H 12/13/19 07:30 Anion Gap 8 MMOL/L (8-16) 12/13/19 07:30 BUN 5.6 mg/dL (7-18) L 12/13/19 07:30 Creatinine 0.8 mg/dL (0.55-1.3) 12/13/19 07:30 Est GFR (CKD-EPI)AfAm 130.42 12/13/19 07:30 Est GFR (CKD-EPI)NonAf 112.53 12/13/19 07:30 Random Glucose 106 mg/dL (74-106) 12/13/19 07:30 Calcium 9.3 mg/dL (8.5-10.1) 12/13/19 07:30 Total Bilirubin 1.1 mg/dL (0.2-1) H 12/13/19 07:30 AST 65 U/L (15-37) H 12/13/19 07:30 ALT 30 U/L (13-61) 12/13/19 07:30 Alkaline Phosphatase 78 U/L (45-117) 12/13/19 07:30 Total Protein 7.7 g/dl (6.4-8.2) 12/13/19 07:30 Albumin 4.2 g/dl (3.4-5.0) 12/13/19 07:30 Syphilis Serology Non-reactive (NONREACTIVE) 12/13/19 07:30 COVID-19 (MARTIN) Not detected (Not Detected) 12/12/19 17:50 Labs noted. Assessment: 12/16/19 12:20 AOX3, in no acute respiratory distress. Full ROM, ambulating in the unit. Mild Withdrawal symptoms Pt completed his protocol today but as per Franco Jeffers, pt has been approved one additional day and would be discharged tomorrow. 12/16/19 12:22 12/16/19 12:24 Plan: Continue with prn meds. D/c in AM.
--- NOTE | 2019-12-16 18:19 | PN ---
S Progress Note Note: Vital Signs Temperature 97.3 F L 12/16/19 16:27 Pulse Rate 103 H 12/16/19 16:27 Respiratory Rate 20 12/16/19 16:27 Blood Pressure 138/92 12/16/19 16:27 O2 Sat by Pulse Oximetry (%) 97 12/16/19 12:24 withdrawal symptom ativan 0.5 mg one now close monitoring
[2019-12-16] MEDS: QUEtiapine FUMARATE 100 MG TABLET (FP) PO SCH (21:25)
[2019-12-16] MEDS: MELATONIN 5 MG TABLETS PO SCH (21:25)
[2019-12-16] MEDS: THIAMINE HCL 100 MG TABLET (FP) PO SCH (21:25)
[2019-12-17] MEDS: hydrOXYzine PAMOATE 25 MG CAPSULE (FP) PO PRN ×4 (00:08→13:53)
[2019-12-17] MEDS: GABAPENTIN 100 MG CAPSULE PO SCH ×3 (05:33→22:02)
[2019-12-17] MEDS ORDERED: LORazepam 0.5 MG TABLET PO ONE (09:38)
--- NOTE | 2019-12-17 09:38 | PN ---
S CIWA - CIWA Score Nausea/Vomitin-No Nausea/No Vomiting Muscle Tremors: 3 Anxiety: 0-No Anxiety, at Ease Agitation: 1-Slight > Activity Paroxysmal Sweats: No Perspiration Orientation: 0-Oriented Tacttile Disturbances: 0-None Auditory Disturbances: 0-None Visual Disturbances: 0-None Headache: 0-None Present CIWA-Ar Total Score: 4 BHS Progress Note (SOAP) Subjective: 39 years old male admitted on 12/12/19 for alcohol withdrawal sx management treating with ativan detox regiment estimated discharge date of 12/16/19 due to tremor withdrawal from alcohol one more day detox continue ativan mr merino states that he has tremor unable to walk needs wheelchair to bathroom from bed mr merino reports that he is in alcohol withdrawal ativan 0.5 mg po x 1 new Objective: 12/17/19 09:40 Vital Signs - 24 hr 12/16/19 12/16/19 12/16/19 12:24 16:27 20:50 Temperature 97.3 F L 97.3 F L 98.4 F Pulse Rate 90 103 H 78 Respiratory 18 20 19 Rate Blood Pressure 136/90 138/92 130/81 O2 Sat by Pulse 97 98 Oximetry (%) 12/17/19 12/17/19 05:32 08:25 Temperature 97.3 F L 97.3 F L Pulse Rate 51 L 80 Respiratory 16 16 Rate Blood Pressure 112/72 150/98 O2 Sat by Pulse Oximetry (%) Laboratory Tests 12/12/19 12/13/19 12/13/19 17:50 07:30 07:30 WBC 5.3 RBC 4.73 Hgb 15.4 Hct 46.6 D MCV 98.5 H MCH 32.5 MCHC 32.9 RDW 15.0 D Plt Count 182 D MPV 9.0 Sodium Potassium Chloride Carbon Dioxide Anion Gap BUN Creatinine Est GFR (CKD-EPI)AfAm Est GFR (CKD-EPI)NonAf Random Glucose Calcium Total Bilirubin AST ALT Alkaline Phosphatase Total Protein Albumin Syphilis Serology Non-reactive COVID-19 ([facility]ARTIN) Not detected 12/13/19 07:30 WBC RBC Hgb Hct MCV MCH MCHC RDW Plt Count MPV Sodium 140 Potassium 3.4 L Chloride 98 Carbon Dioxide 34 H Anion Gap 8 BUN 5.6 L Creatinine 0.8 Est GFR (CKD-EPI)AfAm 130.42 Est GFR (CKD-EPI)NonAf 112.53 Random Glucose 106 Calcium 9.3 Total Bilirubin 1.1 H AST 65 H ALT 30 Alkaline Phosphatase 78 Total Protein 7.7 Albumin 4.2 Syphilis Serology COVID-19 (MARTIN) lab noted bp elevation due to alcohol withdrawal Assessment: 12/17/19 09:41 alcohol withdrawal Plan: ativan regiment
[2019-12-17] MEDS: QUEtiapine FUMARATE 50 MG TABLET PO SCH (09:46)
[2019-12-17] MEDS: NICOTINE 14 MG/24 HOURS TOPICAL PATCH TD SCH (09:47)
[2019-12-17] MEDS: METHYL SALICYLATE/MENTHOL OINT 30 GM TUBE TP SCH ×2 (09:47→22:04)
[2019-12-17] MEDS: PRENATAL VITAMINS W/ FOLIC ACID TABLET (FP) PO SCH (09:47)
[2019-12-17] MEDS: BACITRACIN 15 GM TUBE TOPICAL OINTMENT TP SCH ×2 (09:47→22:03)
[2019-12-17] MEDS ORDERED: ONDANSETRON *ODT* 4 MG TABLET SL ONE (12:10)
[2019-12-17] MEDS: METHOCARBAMOL 500 MG TABLET PO PRN (13:52)
[2019-12-17] MEDS ORDERED: hydrOXYzine PAMOATE 50 MG CAPSULE (FP) PO ONE (16:53)
[2019-12-17] MEDS: QUEtiapine FUMARATE 100 MG TABLET (FP) PO SCH (22:01)
[2019-12-17] MEDS: THIAMINE HCL 100 MG TABLET (FP) PO SCH (22:01)
[2019-12-17] MEDS: MELATONIN 5 MG TABLETS PO SCH (22:02)
[2019-12-18] MEDS: hydrOXYzine PAMOATE 25 MG CAPSULE (FP) PO PRN ×2 (01:21→05:39)
[2019-12-18] MEDS: GABAPENTIN 100 MG CAPSULE PO SCH (05:39)
[2019-12-18 06:46] VITALS: BP 116/86; PULSE 60; TEMP 96.8
--- NOTE | 2019-12-18 08:19 | DS ---
[facility] Detox Discharge Summary Admission Date: 12/12/19 Discharge Date: 12/18/19 - History Present History: Alcohol Dependence Additional Comments: 39 years old male admitted on 12/12/19 for alcohol withdrawal sx management treated with ativan detox regimetn seen by psychiatrist sherrill limon mr merino has completed the ativan regiment and is tolerated well alert oriented x 3 speech clearly coherently ambulating with steady gaits mr merino was doing well with alcohol withdrawal through out the ativan detox regiment mr merino has difficulty with benzo withdrawal based on chart reviewed that Wednesday due to benzo withdrawal sx mr merino re quired longer detox as per estimated discharge date of 12/16/19 mr merino states that his valium provider office open Wednesday that he missed the opportunity mr tse states that his sister refuses to go to the pharmacy picking up valium for him on Wednesday mr tse required longer benzo detox that he has no valium at home mr tse states that he is feeling better today and is willing to go to [facility] for alcohol recovery cardiac s1s2 regular rate rhythm ekg indicated bilaterally atrial enlargement mr tse denies chest pain no dizziness no shortness of breath Vital Signs - 24 hr 12/17/19 12/17/19 12/17/19 12:18 16:20 20:36 Temperature 97 F L 97.3 F L 97.3 F L Pulse Rate 123 H 103 H 111 H Respiratory 18 18 18 Rate Blood Pressure 140/97 137/92 148/90 O2 Sat by Pulse 97 98 Oximetry (%) 12/18/19 06:45 Temperature 96.8 F L Pulse Rate 60 Respiratory 18 Rate Blood Pressure 116/86 O2 Sat by Pulse 100 Oximetry (%) respiratory clear lung sounds bilaterally on auscultation extremities full range of motion Pertinent Past History: time for discharge 35 minutes mr merino is receiving klonopine or valium since 2019 - Physical Exam Results Vital Signs: Vital Signs Temperature 96.8 F L 12/18/19 06:45 Pulse Rate 60 12/18/19 06:45 Respiratory Rate 18 12/18/19 06:45 Blood Pressure 116/86 12/18/19 06:45 O2 Sat by Pulse Oximetry (%) 100 12/18/19 06:45 Pertinent Admission Physical Exam Findings: alcohol withdrawal Laboratory Tests 12/12/19 12/13/1912/12/20 17:50 07:30 07:30 WBC 5.3 RBC 4.73 Hgb 15.4 Hct 46.6 D MCV 98.5 H MCH 32.5 MCHC 32.9 RDW 15.0 D Plt Count 182 D MPV 9.0 Sodium Potassium Chloride Carbon Dioxide Anion Gap BUN Creatinine Est GFR (CKD-EPI)AfAm Est GFR (CKD-EPI)NonAf Random Glucose Calcium Total Bilirubin AST ALT Alkaline Phosphatase Total Protein Albumin Syphilis Serology Non-reactive COVID-19 ([facility]IN) Not detected 12/13/19 07:30 WBC RBC Hgb Hct MCV MCH MCHC RDW Plt Count MPV Sodium 140 Potassium 3.4 L Chloride 98 Carbon Dioxide 34 H Anion Gap 8 BUN 5.6 L Creatinine 0.8 Est GFR (CKD-EPI)AfAm 130.42 Est GFR (CKD-EPI)NonAf 112.53 Random Glucose 106 Calcium 9.3 Total Bilirubin 1.1 H AST 65 H ALT 30 Alkaline Phosphatase 78 Total Protein 7.7 Albumin 4.2 Syphilis Serology COVID-19 ([facility]ARTIN) lab noted - Treatment Hospital Course: Detox Protocol Followed, Detoxed Safely, Responded well, Discharged Condition Good, Rehab Referral Accepted Patient has Accepted a Rehab Referral to: [facility] - Medication Discharge Medications: Ambulatory Orders Quetiapine Fumarate [Seroquel -] 100 mg PO HS 05/31/18 Diazepam 10 mg PO TID 12/12/19 Quetiapine Fumarate [Seroquel -] 100 mg PO HS #30 tablet 12/18/19 - Diagnosis (1) Alcohol dependence with uncomplicated withdrawal Status: Acute (2) Weight loss Status: Chronic (3) Substance induced mood disorder Status: Suspected (4) Nicotine dependence Status: Acute Qualifiers: Nicotine product type: cigarettes Substance use status: in withdrawal Qualified Code(s): F17.213 - Nicotine dependence, cigarettes, with withdrawal - AMA Did Patient Leave Against Medical Advice: No CIWA Score - CIWA Score Nausea/Vomitin-No Nausea/No Vomiting Muscle Tremors: 2 Anxiety: 0-No Anxiety, at Ease Agitation: 0-Normal Activity Paroxysmal Sweats: No Perspiration Orientation: 0-Oriented Tacttile Disturbances: 0-None Auditory Disturbances: 0-None Visual Disturbances: 0-None Headache: 0-None Present CIWA-Ar Total Score: 2
== END 2019-12-18 09:13 | disposition home or self-care (01) | DRG 775 ==
LOC: YASAS 09:04 → Y3N 17:14
PROVIDERS: ADMIT Allergy & Immunology; ATTEND Allergy & Immunology
PROC: HZ2ZZZZ Detoxification Services for Substance Abuse Treatment (ICD-10-PCS; principal; 2019-12-12)
DX: F10.230 Alcohol dependence with withdrawal, uncomplicated (principal); F10.220 Alcohol dependence with intoxication, uncomplicated; F13.230 Sedative, hypnotic or anxiolytic dependence with withdrawal, uncomplicated; F12.20 Cannabis dependence, uncomplicated; F17.213 Nicotine dependence, cigarettes, with withdrawal; F31.9 Bipolar disorder, unspecified; F19.24 Other psychoactive substance dependence with psychoactive substance-induced mood disorder; J45.909 Unspecified asthma, uncomplicated; R26.0 Ataxic gait; Z99.3 Dependence on wheelchair; Z86.69 Personal history of other diseases of the nervous system and sense organs; Z68.22 Body mass index [BMI] 22.0-22.9, adult; Z88.5 Allergy status to narcotic agent; Z91.5 Personal history of self-harm
CPT/HCPCS: 36415; 80053; 85027; 86780; 93005; 93010; U0003